=== PATIENT | female | born 1965 | race American Indian/Alaskan Native ===

== ENCOUNTER 2017-03-29 07:19 | Emergency (ER) | payer MEDICAID ==
[2017-03-29 08:02] LABS: Bacteria,Urine 1+ /HPF (Negative); Bilirubin,Urine SM (Negative); Blood,Urine MOD (Negative); Ketones,Urine TR mg/dL (Negative); Leukocyte Esterase,Urine TR (Negative); Mucus,Urine 3+ /HPF; Nitrite,Urine NEG (Negative)
[2017-03-29 08:05] LABS: Basophils % (Auto) 0.3 % (0.0-1.8); Eosinophils % (Auto) 0.1 % (0.0-4.3); Hematocrit 44.2 % (30.3-42.9); Mean Corpuscular HGB Conc 34 % (30-34); Mean Corpuscular Hemoglobin 30 pg (28-32); Mean Corpuscular Volume 88 fl (79-97); Platelet Count 105 K/mm3 (140-440); Red Cell Distribution Width 13.6 % (13.2-15.2); White Blood Count 14.8 K/mm3 (4.5-11.0)
[2017-03-29 08:23] LABS: Alanine Aminotransferase 15 units/L (7-56); Albumin 3.1 g/dL (3.9-5); Albumin/Globulin Ratio 0.7 %; Alkaline Phosphatase 77 units/L (35-129); Anion Gap 17 mmol/L; BUN/Creatinine Ratio 17.14; Blood Urea Nitrogen 12 mg/dL (7-17); Calcium 8.7 mg/dL (8.4-10.2); Carbon Dioxide 26 mmol/L (22-30); Glucose 109 mg/dL (65-100); Lipase 22 units/L (13-60); Potassium 3.7 mmol/L (3.6-5.0); Sodium 139 mmol/L (137-145); Total Protein 7.3 g/dL (6.3-8.2)
[2017-03-29] MEDS ORDERED: NACL 0.9% 1000 ML 1,000 ML IV ONE (12:22)
--- NOTE | 2017-03-29 12:25 | Emergency Department Report ---
Chief Complaint: Abdominal Pain Stated Complaint: ABD PAIN Time Seen by Provider: 03/29/17 12:20 - HPI History of Present Illness: PT c/o 4 days of lower abd pain PT states she has had weight loss surgery, appendectomy and gallbladder removal pt states lmp 03-22-17 - ROS Review of Systems: + brown vaginal discharge + lower abd pain + n/v - Exam Vital Signs: Vital Signs 03/29/17 07:29 Temperature 99.1 F Pulse Rate 95 H Respiratory 18 Rate Blood Pressure 86/55 O2 Sat by Pulse 98 Oximetry Physical Exam: PT looks well, non toxic. Will lower abd tenderness MSE screening note: Focused history and physical exam performed. Due to findings the following was ordered: [facility] ED Medical Decision Making - Lab Data Result diagrams: 03/29/17 07:49 03/29/17 07:49 ED Disposition for MSE Condition: Stable Instructions: Abdominal Pain (ED) Referrals: PRIMARY CARE, [Primary Care Provider] - 3-5 Days
--- NOTE | 2017-03-29 15:42 | Emergency Department Report ---
HPI - General Chief Complaint: Abdominal Pain Time Seen by Provider: 03/29/17 12:20 - HPI HPI: This is a 52-year-old female presents the emergency department from home with a complaint of a 3 to four-day history of lower abdominal and or upper pelvic discomfort. The pain worsens when she is having a bowel movement but she has no trouble doing so. She denies any dysuria but wonders if her pain is related to a urinary tract infection. She also says that she had a history of PID when she was a teenager. She's been having a few days of brownish discharge. She denies any fever, nausea, vomiting, back pain. She has not taken anything for symptoms of presentation. She has a past medical history of asthma, as well as some borderline diabetes and hypertension for which she does not take any medication. She has a past surgical history of appendectomy and cholecystectomy. Her primary care physician is a Dr. Menjivar. No recent travel or sick contacts at home. ED Past Medical Hx - Past Medical History Previous Medical History?: Yes Hx Hypertension: Yes (not on medication) Hx Diabetes: Yes (not on medication) Hx Renal Disease: No Hx Seizures: No Hx Asthma: No Additional medical history: low platelts, anemia, Hyperlipidemai - Surgical History Past Surgical History?: Yes Hx Cholecystectomy: Yes Hx Appendectomy: Yes Additional Surgical History: gastric sleeve - Social History Smoking Status: Current Every Day Smoker Substance Use Type: Non Opiate Pain, Prescribed - Medications Home Medications: Home Medications Medication Instructions Recorded Confirmed Last Taken Type HYDROcodone/APAP 5-325 [[place] 1 each PO Q6HR PRN #10 tablet 03/29/17 Unknown Rx 5/325] ED Review of Systems ROS: Stated complaint: ABD PAIN Other details as noted in HPI Comment: All other systems reviewed and negative Constitutional: denies: chills, fever Eyes: denies: eye pain, eye discharge, vision change ENT: denies: ear pain, throat pain Respiratory: denies: cough, shortness of breath, wheezing Cardiovascular: denies: chest pain, palpitations Gastrointestinal: abdominal pain. denies: nausea, vomiting Genitourinary: discharge. denies: dysuria Musculoskeletal: denies: back pain, joint swelling, arthralgia Skin: denies: rash, lesions Neurological: denies: headache, weakness, paresthesias Physical Exam - Physical Exam Vital Signs: Vital Signs 03/29/17 07:29 Temperature 99.1 F Pulse Rate 95 H Respiratory 18 Rate Blood Pressure 86/55 O2 Sat by Pulse 98 Oximetry Physical Exam: GENERAL: The patient is well-developed well-nourished. ENT: Normocephalic. Atraumatic. Patient has moist mucous membranes. EYES: Extraocular motions are intact. Pupils equal reactive to light bilaterally. No nystagmus. NECK: Supple. Trachea is mid line. CHEST/LUNGS: Clear to auscultation. There is no respiratory distress noted. HEART/CARDIOVASCULAR: Regular. There is mild to moderate tachycardia. There is no gallop rub or murmur. ABDOMEN: Abdomen is soft. Unable to reproduce lower abdominal tenderness to palpation. Patient has normal bowel sounds. There is no abdominal distention. SKIN: Skin is warm and dry. NEURO: The patient is awake, alert, and oriented. The patient is cooperative. The patient has no sensory or motor deficits. The patient has normal speech. MUSCULOSKELETAL: There is no tenderness or deformity. There is no limitation range of motion. There is no evidence of acute injury. ED Course Vital Signs 03/29/17 07:29 Temperature 99.1 F Pulse Rate 95 H Respiratory 18 Rate Blood Pressure 86/55 O2 Sat by Pulse 98 Oximetry - Consultations Consultation #1: I spoke to the POL[employer] TECHNICIAN librarian special collections, Dr. Paulson, who listened to the case presentation and the imaging results and does not feel that there is any need for admission or any further workup or intervention in the emergency department and agrees with the plan for the patient to follow up with her POL[employer] SC[employer] TECHNICIAN in the next few days. 03/29/17 19:41 ED Medical Decision Making - Lab Data Result diagrams: 03/29/17 07:49 03/29/17 07:49 - Radiology Data Radiology results: report reviewed CT of the abdomen and pelvis with IV contrast shows a complex multiseptated cystic lesion in the midline pelvis that is approximately 14 x 12 cm with concern for ovarian tumor/malignancy - Medical Decision Making 52-year-old female presents with a few days of lower abdominal and pelvic discomfort. Labs are mostly unremarkable and do not show any etiology of her symptoms. CT shows a multi septated cystic pelvic lesion is concerning for an ovarian mass/malignancy. Spoke to POL[employer] SCENE TECHNICIAN on-call who says the patient appears stable for follow-up with her own [employer] SC[employer] TECHNICIAN. Patient was given some pain control and was given all the information about the labs and imaging. The patient herself understands the importance of close follow-up with her POL[employer] SC[employer] TECHNICIAN in the next few days in order to rule out cancer from the differential or if positive to start early treatment. She will return to the ER for any worsening of her symptoms or any acute distress. - Differential Diagnosis ovarian cyst, malignancy, fibroid, UTI Critical Care Time: No Critical care attestation.: If time is entered above; I have spent that time in minutes in the direct care of this critically ill patient, excluding procedure time. ED Disposition Clinical Impression: Pelvic mass, Pelvic pain Disposition: TO HOME OR SELFCARE Is pt being admited?: No Condition: Stable Instructions: Abdominal Pain (ED) Additional Instructions: You were seen today for lower abdominal and/or pelvic pain. You were found to have a large pelvic mass on CT scan. It is absolutely imperative that you follow up with your [employer] SC[employer] TECHNICIAN in the next few days for further evaluation of this pelvic mass. You were given a copy of the CT results. Return to the emergency Department with any worsening of her symptoms or any acute distress. You have been prescribed a medication that can be sedating. This medication should not be taken prior to driving, working, being responsible for children and should not be mixed with alcohol. Prescriptions: HYDROcodone/APAP 5-325 [[place] 5/325] 1 each PO Q6HR PRN #10 tablet PRN Reason: Pain Referrals: PRIMARY CARE, [Primary Care Provider] - [facility] Time of Disposition: 19:42
[2017-03-29] MEDS ORDERED: NACL 0.9% 1000 ML 1,000 ML ONE (16:07)
--- NOTE | 2017-03-29 17:12 | Cat Scan Report ---
CT ABDOMEN AND PELVIS WITH CONTRAST INDICATION: Abdominal pain. COMPARISON: 12/04/2014 CT. FINDINGS: Abdomen and pelvis CT performed following intravenous administration of 100 cc of Omnipaque 300. LUNG BASES: Approximately 10 x 7.2 cm pericardial cyst about the right cardiophrenic angle again partially noted, axial series 2, image 3. No effusions. Nonspecific distal esophageal wall prominence/thickening, not excluded for gastroesophageal reflux and/or hiatal hernia, amongst others. ABDOMEN: Approximately 4 cm right hepatic lobe hemangioma again noted, axial image 7. Stable cholecystectomy clips. Subtle hypodensity anterior to the liver measuring 58 HU slightly more prominent as on axial image 22, series 2, amongst others, nonspecific. Right hepatic lobe again approximately 18.5 cm in midclavicular length. Patent veins. Spleen, pancreas, adrenals, nonaneurysmal abdominal aorta with few atherosclerotic calcifications, IVC and kidneys remain within normal limits. Left upper renal cortical scarring posteromedially again noted as also a tiny, indeterminate right interpolar renal cortical hypodensity. Retroperitoneal adenopathy suspected with the largest aortocaval lymph node approximately 1 cm, axial image 28, series 2. Nonopacified GI tract evaluation limited, though grossly nonobstructive. Interval gastric bypass surgery noted. No fat stranding about the duodenum now seen. Mild colonic stool, most along the descending colon. PELVIS: A complex multiseptated cystic lesion now fills the pelvis, approximately 14.6 x 12.5 cm in greatest orthogonal dimensions, axial image 61, series 2 and approximately 11.6 cm craniocaudal, measuring 17 HU. It extends into the lower abdomen and somewhat inferiorly displaces otherwise unremarkable uterus and the urinary bladder. It may possibly be ovarian, though exact organ of origin uncertain on this exam alone. Normal rectosigmoid. Few small iliac lymph nodes measure up to approximately 1.2 cm on the right, axial image 68. Mild multilevel imaged spinal degenerative changes. CONCLUSION: 1. Large complex/multicystic lesion now occupies the pelvis, exact origin uncertain, though worrisome for ovarian neoplasm. Retroperitoneal adenopathy also suspected. CRIMINALIST correlation suggested. 2. Interval sleeve gastrectomy with various other stable findings, including large pericardial cyst, hepatic hemangioma, cholecystectomy and prominent/enlarged liver, amongst others, as described above. Thank you for the opportunity to participate in this patient's care.
[2017-03-29] MEDS ORDERED: SUBLIMAZE IV ONE ×2 (17:15→18:00)
[2017-03-29] MEDS ORDERED: PERCOCET 5/325 PO ONE (19:44)
[2017-03-29 20:11] VITALS: BP 106/55
== END 2017-03-29 20:09 | disposition home or self-care (01) ==
LOC: ED 07:19
DX: R19.09 Other intra-abdominal and pelvic swelling, mass and lump (principal); R10.2 Pelvic and perineal pain; I10 Essential (primary) hypertension; E11.9 Type 2 diabetes mellitus without complications; D64.9 Anemia, unspecified; E78.5 Hyperlipidemia, unspecified; Z90.49 Acquired absence of other specified parts of digestive tract; F17.200 Nicotine dependence, unspecified, uncomplicated; Z88.8 Allergy status to other drugs, medicaments and biological substances
CPT/HCPCS: 36415; 74177; 80053; 81001; 82962; 83690; 84703; 85025; 87210; 87591; 96361; 96374; 99285; J3010; J7030; Q9967